=== PATIENT | male | born 1945 | race Caucasian/White ===

== ENCOUNTER → 2020-11-29 | Outpatient (CLI) | payer MEDICARE ==
[~2020-11-29] MED LIST: ALDACTONE25 MG PO; ALDACTONE50 MG PO; AMIODARONE HCL200 MG PO; ASPIRIN EC81 MG PO; CARVEDILOL3.125 MG PO; CATAPRES0.3 MG PO; COMBIVENT RESPIM4 GM INH; COREG 25MG TAB25 MG PO; CYANOCOBAL1000 MCG/1 INJ; ECOTRIN81 MG PO; ELIQUIS2.5 MG PO; ENULOSE10 GM/15 M PO; FENTANYL1 EACH TOP; FERROUS SULFAT325 M2 PO; FUROSEMIDE40 MG PO; HYDRALAZINE HC100 MG PO; HYDROCODON-ACE1 EAC4 PO; IMDUR ER TAB 3030 MG PO; IMDUR ER TAB 6060 MG PO; LASIX 40 MG TAB40 MG PO; LASIX80 MG PO; LEVOFLOXACIN250 MG PO; LIORESAL TAB 1010 MG PO; LIPITOR40 MG PO; LISINOPRIL30 MG PO; MAGNESIUM500 MG PO; METOLAZONE10 MG PO; MINIPRESS2 MG PO; MINOCIN100 MG PO; MIRALAX 119 GR119 GM PO; NEURONTIN 100100 MG PO; NITROGLYCERIN0.4 MG SL; NORVASC10 MG PO; NORVASC5 MG PO; NOVOLIN 70100 UNIT/1 SQ; NOVOLOG MI100 UNIT/1 SQ; OMEPRAZOLE40 MG PO; PANTOPRAZOLE SO40 MG PO; PERCOCET 5-3251 EACH PO; PHOSLO 667 MG667 MG PO; PLAVIX 75 MG TA75 MG PO; PREDNISOLONE OS; PREDNISONE20 MG PO; PROTONIX40 MG PO; SENNA8.6 MG PO; SODIUM BICARBO650 M1 PO; TESSALON PERLE100 MG PO; ZAROXOLYN/DIULO5 MG PO; ZOFRAN ODT 4 MG4 MG PO; ZYLOPRIM 100 M100 MG PO; ZYRTEC10 MG PO
== END ==
LOC: EXRD 13:00 → KOH-I 13:00 → EXRD 13:07
DX: I73.89 Other specified peripheral vascular diseases (principal); I70.203 Unspecified atherosclerosis of native arteries of extremities, bilateral legs
CPT/HCPCS: 93925

== ENCOUNTER → 2020-12-09 | Outpatient (CLI) | payer MEDICARE | LOC: US 12:42 → CT 14:00 | DX: I65.23 Occlusion and stenosis of bilateral carotid arteries (principal); I73.9 Peripheral vascular disease, unspecified; I77.89 Other specified disorders of arteries and arterioles; R18.8 Other ascites; J90 Pleural effusion, not elsewhere classified; K80.20 Calculus of gallbladder without cholecystitis without obstruction; Z95.828 Presence of other vascular implants and grafts | CPT/HCPCS: 75635; 93880; Q9967 ==

== ENCOUNTER 2020-12-16 11:55 | Emergency (ER) | payer MEDICARE ==
[~2020-12-16 11:55] MED LIST changes: -AMIODARONE HCL200 MG PO; -FENTANYL1 EACH TOP; -FERROUS SULFAT325 M2 PO; -HYDROCODON-ACE1 EAC4 PO; -LIORESAL TAB 1010 MG PO; -METOLAZONE10 MG PO; -MIRALAX 119 GR119 GM PO; -NEURONTIN 100100 MG PO; -NORVASC5 MG PO; -NOVOLOG MI100 UNIT/1 SQ; -PERCOCET 5-3251 EACH PO; -PHOSLO 667 MG667 MG PO; -SENNA8.6 MG PO; -ZOFRAN ODT 4 MG4 MG PO; -ZYRTEC10 MG PO
[2020-12-16 13:26] LABS: HEMOGLOBIN 8.6 gm/dl (14.0-17.5); RED BLOOD COUNT 2.71 M/UL (4.20-5.50); WHITE BLOOD COUNT 6.1 K/UL (4.5-11.0)
[2020-12-16] MEDS ORDERED: HYDROCODON-ACE1 EAC4 PO (16:42)
== END 2020-12-16 16:55 | disposition home or self-care (01) ==
LOC: ER1 11:55
PROVIDERS: Physician Assistant Medical
DX: M79.672 Pain in left foot (principal); M79.671 Pain in right foot; E87.6 Hypokalemia; E71.41 Primary carnitine deficiency; I12.9 Hypertensive chronic kidney disease with stage 1 through stage 4 chronic kidney disease, or unspecified chronic kidney disease; E11.22 Type 2 diabetes mellitus with diabetic chronic kidney disease; N18.9 Chronic kidney disease, unspecified; Z85.118 Personal history of other malignant neoplasm of bronchus and lung; Z95.1 Presence of aortocoronary bypass graft; Z79.82 Long term (current) use of aspirin
CPT/HCPCS: 80053; 85025; 85610; 94664; 96374; 96375; 99283; J2270; J2405

== ENCOUNTER 2020-12-19 08:12 | Inpatient (IN) | payer MEDICARE ==
[~2020-12-19] VITALS: Ht 175.3 cm; Wt 85.8 kg
[~2020-12-19 08:12] MED LIST changes: +HYDROCODON-ACE1 EAC4 PO
[2020-12-19 08:46] LABS: HEMOGLOBIN 9.2 gm/dl (14.0-17.5); RED BLOOD COUNT 2.9 M/UL (4.20-5.50); WHITE BLOOD COUNT 5.1 K/UL (4.5-11.0)
[2020-12-19] MEDS ORDERED: LIORESAL TAB 1010 MG PO (11:16)
[2020-12-19] MEDS ORDERED: NORVASC5 MG PO (11:16)
[2020-12-19] MEDS ORDERED: LASIX 40 MG TAB40 MG PO (11:17)
[2020-12-19] MEDS ORDERED: METOLAZONE10 MG PO (11:18)
[2020-12-19] MEDS ORDERED: ZOFRAN ODT 4 MG4 MG PO (11:18)
[2020-12-19] MEDS ORDERED: ZYRTEC10 MG PO (11:18)
[2020-12-19] MEDS ORDERED: SENNA8.6 MG PO (11:19)
[2020-12-19] MEDS ORDERED: MIRALAX 119 GR119 GM PO (11:19)
[2020-12-19] MEDS ORDERED: CYANOCOBAL1000 MCG/1 INJ (11:20)
[2020-12-19] MEDS ORDERED: PHOSLO 667 MG667 MG PO (11:20)
[2020-12-20 02:57] LABS: HEMOGLOBIN 8.7 gm/dl (14.0-17.5); RED BLOOD COUNT 2.69 M/UL (4.20-5.50); WHITE BLOOD COUNT 4.6 K/UL (4.5-11.0)
--- NOTE | 2020-12-20 18:50 | NUR ---
PT REMAINS AT DIALYSIS. WILL ASSESS WHEN HE RETURNS TO THE FLOOR.
--- NOTE | 2020-12-21 10:56 | NUR ---
PT TAKING DOWN TO DIALYSIS
--- NOTE | 2020-12-22 09:07 | NUR ---
DIALYSIS NURSE NOTIFIED PT NEEDS DIALYSIS TODAY PER DR. MA
--- NOTE | 2020-12-22 10:00 | NUR ---
PT TAKEN DOWN STAIRS TO RECIEVE DIALYSIS ORDERED
[2020-12-22 10:09] LABS: HEMOGLOBIN 8.8 gm/dl (14.0-17.5); RED BLOOD COUNT 2.77 M/UL (4.20-5.50); WHITE BLOOD COUNT 5.3 K/UL (4.5-11.0)
[2020-12-23 04:15] LABS: HEMOGLOBIN 8.7 gm/dl (14.0-17.5); RED BLOOD COUNT 2.73 M/UL (4.20-5.50); WHITE BLOOD COUNT 4.5 K/UL (4.5-11.0)
[2020-12-23] MEDS ORDERED: HYDROCODON-ACE1 EAC4 PO (11:23)
[2020-12-23] MEDS ORDERED: FENTANYL1 EACH TOP (11:23)
--- NOTE | 2020-12-23 16:16 | NUR ---
HOSPICE NOTIFIED PT HAD BEEN DISCHARGED
== END 2020-12-23 15:00 | DRG 299 ==
LOC: ER1 08:12 → CDU 10:30 → PROG CARE 10:30
PROVIDERS: Emergency Medicine; Internal Medicine; Internal Medicine Nephrology; Physician Assistant Medical; Surgery; ADMIT Internal Medicine
PROC: 5A1D70Z Performance of Urinary Filtration, Intermittent, Less than 6 Hours Per Day (ICD-10-PCS; principal; 2020-12-20)
PROC: 5A1D70Z Performance of Urinary Filtration, Intermittent, Less than 6 Hours Per Day (ICD-10-PCS; 2020-12-21)
DX: I73.9 Peripheral vascular disease, unspecified (principal); N18.6 End stage renal disease; I50.33 Acute on chronic diastolic (congestive) heart failure; D61.818 Other pancytopenia; C34.90 Malignant neoplasm of unspecified part of unspecified bronchus or lung; C78.7 Secondary malignant neoplasm of liver and intrahepatic bile duct; E87.1 Hypo-osmolality and hyponatremia; I13.2 Hypertensive heart and chronic kidney disease with heart failure and with stage 5 chronic kidney disease, or end stage renal disease; R18.8 Other ascites; E11.52 Type 2 diabetes mellitus with diabetic peripheral angiopathy with gangrene; L03.116 Cellulitis of left lower limb; Z51.5 Encounter for palliative care; J60 Coalworker's pneumoconiosis; I49.5 Sick sinus syndrome; E11.22 Type 2 diabetes mellitus with diabetic chronic kidney disease; E87.6 Hypokalemia; D63.1 Anemia in chronic kidney disease; I48.91 Unspecified atrial fibrillation; K72.90 Hepatic failure, unspecified without coma; K74.60 Unspecified cirrhosis of liver; I99.8 Other disorder of circulatory system; E11.65 Type 2 diabetes mellitus with hyperglycemia; D69.6 Thrombocytopenia, unspecified; I25.10 Atherosclerotic heart disease of native coronary artery without angina pectoris; Z99.2 Dependence on renal dialysis; Z98.61 Coronary angioplasty status; Z95.1 Presence of aortocoronary bypass graft; Z95.0 Presence of cardiac pacemaker; Z79.899 Other long term (current) drug therapy; Z79.01 Long term (current) use of anticoagulants; Z79.4 Long term (current) use of insulin
CPT/HCPCS: ECHO; 36415; 71045; 80048; 80053; 82962; 83036; 83735; 84132; 85025; 85027; 85610; 85730; 86850; 86900; 86901; 86920; 90935; 90937; 93005; 93306; 94664; 96372; 96374; 96375; 96376; 99283; 99284; J1644; J2270; J2405; J7030; U0002

== ENCOUNTER 2021-02-04 09:55 | Inpatient (IN) | payer MEDICARE ==
[~2021-02-04] VITALS: Ht 175.3 cm; Wt 79.1 kg
[~2021-02-04 09:55] MED LIST changes: -AMIODARONE HCL200 MG PO; -FERROUS SULFAT325 M2 PO; -NEURONTIN 100100 MG PO; -NOVOLOG MI100 UNIT/1 SQ; -PERCOCET 5-3251 EACH PO
[2021-02-04 11:53] LABS: HEMOGLOBIN 9.1 gm/dl (14.0-17.5); RED BLOOD COUNT 3.1 M/UL (4.20-5.50); WHITE BLOOD COUNT 4.6 K/UL (4.5-11.0)
[2021-02-04] MEDS ORDERED: NOVOLOG MI100 UNIT/1 SQ (16:37)
[2021-02-04] MEDS ORDERED: PERCOCET 5-3251 EACH PO (16:39)
[2021-02-04] MEDS ORDERED: FERROUS SULFAT325 M2 PO (16:51)
[2021-02-04] MEDS ORDERED: NEURONTIN 100100 MG PO (18:02)
[2021-02-05 06:49] LABS: HEMOGLOBIN 8.7 gm/dl (14.0-17.5); RED BLOOD COUNT 2.98 M/UL (4.20-5.50); WHITE BLOOD COUNT 3.6 K/UL (4.5-11.0)
[2021-02-06 05:56] LABS: HEMOGLOBIN 9.4 gm/dl (14.0-17.5); RED BLOOD COUNT 3.19 M/UL (4.20-5.50); WHITE BLOOD COUNT 4.4 K/UL (4.5-11.0)
--- NOTE | 2021-02-07 04:09 | NUR ---
0325- TELE NOTIFIED THAT WE NEEDED TO GO CHECK ON PATIENT. NAYA RN TOLD THEM SHE JUST LEFT THE ROOM AND HAD PLACED HIS O2 BACK ON HIM. THEN THEY TOLD HER HE HAD BEEN IN [place] FOR A LITTLE WHILE THEN SAID FOR 12 SECONDS. WE IMMEDIATELY WENT AND ASSESSED THE PATIENT WHO WAS TALKING TO US AND ASKED WHAT WAS GOING ON. I ASKED PATIENT IF HE WAS OKAY AND HE STATED YES HE WAS FINE. DURING ASSESSMENT PATIENT WENT NONRESPONSIVE AND WENT BACK INTO [place]. TORRI VEE CALLED, BEFORE COMPRESSIONS COULD BE STARTED PATIENT STARTED RESPONDING AND HAD A PULSE. HE WAS TELLING US HE WAS OKAY AND AGAIN WANTED TO KNOW WHAT WAS GOING ON. CODE CANCELLED AT 0328. DRILLING RIG OPERATOR AND RESOURCE ARRIVED INTO ROOM PATIENT IN [place] AT 0329. PATIENT RECEIVED AMIO BOLUS AT 0337. B/P 115/90, O2 89%, PT STILL IN [place] PTS OWN DEFIBRILATOR DELIVERED SHOCK, RT BEGAN MANUALLY BAGGING. 0341 PULSE LOST COMPRESSIONS STARTED. 0344 PULSE 128, [place] PULSE 230, B/P 102/74. 0345 22G PLACED TO LEFT HAND BY RESOURCE NURSE. 0347 300MG AMIO IVP GIVEN. 0348 INTUBATED 23 AT THE LIP BY ED PHYSICIAN, B/P 79/61. 0349 B\P 96/71 AMIO DRIP STARTED PER PROTOCOL. 0355 500ML NORMAL SALINE BOLUS INITIATED. B\P 117/82, HR 96. 0357 VERSED INITIATED AT 2 PER PROTOCOL. 0358 B\P 121/79, HR 88. 0400 B\P 124/73, HR 91, O2 95%. SEE PROVIDER NOTES FOR PHYSICIAN NOTIFICATIONS.
[2021-02-07 04:25] LABS: HEMOGLOBIN 9.8 gm/dl (14.0-17.5); RED BLOOD COUNT 3.38 M/UL (4.20-5.50)
[2021-02-07 04:26] LABS: WHITE BLOOD COUNT 12.3 K/UL (4.5-11.0)
[2021-02-07 12:14] LABS: HBSAG SCREEN Negative (Negative); HEP A AB, IGM Negative (Negative); HEP B CORE AB, IGM Negative (Negative); HEP C VIRUS AB <0.1 (0.0-0.9)
[2021-02-08 05:03] LABS: HEMOGLOBIN 8.5 gm/dl (14.0-17.5); RED BLOOD COUNT 2.88 M/UL (4.20-5.50); WHITE BLOOD COUNT 4.8 K/UL (4.5-11.0)
[2021-02-09 05:08] LABS: HEMOGLOBIN 8.5 gm/dl (14.0-17.5); RED BLOOD COUNT 2.85 M/UL (4.20-5.50); WHITE BLOOD COUNT 5.5 K/UL (4.5-11.0)
[2021-02-10 03:17] LABS: HEMOGLOBIN 8.5 gm/dl (14.0-17.5); RED BLOOD COUNT 2.88 M/UL (4.20-5.50); WHITE BLOOD COUNT 5.4 K/UL (4.5-11.0)
--- NOTE | 2021-02-10 18:12 | NUR ---
DRESSING CHANGED ON HAND. PT TOLERATED IT WELL.
--- NOTE | 2021-02-11 10:56 | NUR ---
CHANGED DRESSING ON R-HAND. DOCTOR HAD REMOVED THE ONE THAT WAS PUT ON YESTERDAY. SO REAPPLIED DRESSING WITH NON-ADHERENT PAD, KURLEX, AND A ANAMIKA BANDAGE. PT TOLERATED IT WELL AND HAD MOVEMENT IN HIS RING FINGER.
[2021-02-12 02:44] LABS: HEMOGLOBIN 8.3 gm/dl (14.0-17.5); RED BLOOD COUNT 2.83 M/UL (4.20-5.50); WHITE BLOOD COUNT 5.7 K/UL (4.5-11.0)
[2021-02-13] MEDS ORDERED: AMIODARONE HCL200 MG PO (14:26)
--- NOTE | 2021-02-13 15:01 | NUR ---
16:40 CASE MANAGEMENT HERE AND RELAYED THE MESSAGE THAT THERE HAD BEEN A PHONE CALL FROM ARELY ANGELA, THE PATIENT'S [id number], THAT WAS CALLING ON BEHALF OF THE PT'S STATING THAT THEY DID NOT WANT THE PT TO COME HOME WITH THE LIFEVEST. DR BOND WAS NOTIDIED AND WAS STATTING THAT THE SON HIMSELF AGREED TO THE PT HAVING IT AND EVERYBODY NEEDED TO BE ON BOARD WITH IT BEFORE BEING DISCHARGED. THE SON AND PT'S MADE THE DECISION THAT THE PT WOULD BE GOING HOME WITH THE LIFEVEST AT THIS TIME.
== END 2021-02-13 16:09 | disposition home or self-care (01) | DRG 513 ==
LOC: ER1 09:55 → PROG CARE 15:33 → CDU 15:33 → MED SURG 4 15:33 → CCU 02-07 04:31 → PROG CARE 02-09 01:08
PROVIDERS: Emergency Medicine; Internal Medicine; Internal Medicine Nephrology; Orthopaedic Surgery; Physician Assistant; ADMIT Internal Medicine
PROC: 5A12012 Performance of Cardiac Output, Single, Manual (ICD-10-PCS; 2021-02-04)
PROC: 0BH17EZ Insertion of Endotracheal Airway into Trachea, Via Natural or Artificial Opening (ICD-10-PCS; 2021-02-04)
PROC: 5A1D70Z Performance of Urinary Filtration, Intermittent, Less than 6 Hours Per Day (ICD-10-PCS; 2021-02-05)
PROC: 0LN70ZZ Release Right Hand Tendon, Open Approach (ICD-10-PCS; principal; 2021-02-06 17:30)
PROC: 0JDJ0ZZ Extraction of Right Hand Subcutaneous Tissue and Fascia, Open Approach (ICD-10-PCS; 2021-02-06 17:30)
PROC: 5A1935Z Respiratory Ventilation, Less than 24 Consecutive Hours (ICD-10-PCS; 2021-02-07)
DX: M65.141 Other infective (teno)synovitis, right hand (principal); A41.9 Sepsis, unspecified organism; I49.01 Ventricular fibrillation; Z20.822 Contact with and (suspected) exposure to COVID-19; I46.2 Cardiac arrest due to underlying cardiac condition; N18.6 End stage renal disease; I50.23 Acute on chronic systolic (congestive) heart failure; R65.21 Severe sepsis with septic shock; J96.01 Acute respiratory failure with hypoxia; J18.9 Pneumonia, unspecified organism; I13.2 Hypertensive heart and chronic kidney disease with heart failure and with stage 5 chronic kidney disease, or end stage renal disease; I25.810 Atherosclerosis of coronary artery bypass graft(s) without angina pectoris; D61.818 Other pancytopenia; I47.2 Ventricular tachycardia; C78.7 Secondary malignant neoplasm of liver and intrahepatic bile duct; L03.113 Cellulitis of right upper limb; L02.511 Cutaneous abscess of right hand; E87.2 Acidosis; E87.1 Hypo-osmolality and hyponatremia; R18.8 Other ascites; E11.65 Type 2 diabetes mellitus with hyperglycemia; J60 Coalworker's pneumoconiosis; E11.51 Type 2 diabetes mellitus with diabetic peripheral angiopathy without gangrene; I25.5 Ischemic cardiomyopathy; L89.151 Pressure ulcer of sacral region, stage 1; I48.0 Paroxysmal atrial fibrillation; K74.60 Unspecified cirrhosis of liver; E87.5 Hyperkalemia; E87.8 Other disorders of electrolyte and fluid balance, not elsewhere classified; I07.1 Rheumatic tricuspid insufficiency; J44.9 Chronic obstructive pulmonary disease, unspecified; I45.10 Unspecified right bundle-branch block; D63.1 Anemia in chronic kidney disease; E03.9 Hypothyroidism, unspecified; K21.9 Gastro-esophageal reflux disease without esophagitis; E78.5 Hyperlipidemia, unspecified; I49.5 Sick sinus syndrome; E11.22 Type 2 diabetes mellitus with diabetic chronic kidney disease; F03.90 Unspecified dementia, unspecified severity, without behavioral disturbance, psychotic disturbance, mood disturbance, and anxiety; Z99.2 Dependence on renal dialysis; Z79.4 Long term (current) use of insulin; Z95.1 Presence of aortocoronary bypass graft; Z85.118 Personal history of other malignant neoplasm of bronchus and lung; Z95.810 Presence of automatic (implantable) cardiac defibrillator; Z89.432 Acquired absence of left foot; Z80.3 Family history of malignant neoplasm of breast; Z82.49 Family history of ischemic heart disease and other diseases of the circulatory system; Z82.69 Family history of other diseases of the musculoskeletal system and connective tissue; Z79.01 Long term (current) use of anticoagulants; Z87.891 Personal history of nicotine dependence; I25.2 Old myocardial infarction
CPT/HCPCS: 31500; 36415; 36600; 71045; 73140; 73200; 80048; 80053; 80074; 80202; 82550; 82553; 82803; 82962; 83605; 83735; 84484; 85025; 85027; 85610; 85652; 85730; 86140; 87070; 87205; 89051; 90935; 90937; 92950; 93005; 94002; 94640; 94664; 94760; 96365; 96366; 96368; 96372; 96375; 96376; 99285; A6212; J0171; J0282; J0690; J0692; J0696; J1100; J2001; J2405; J2704; J3010; J3370; J7030; J7050; J7070; J7120; P9047; U0002

== ENCOUNTER → 2021-02-04 | Outpatient (CLI) | payer MEDICARE ==
[~2021-02-04] MED LIST changes: +AMIODARONE HCL200 MG PO; +FENTANYL1 EACH TOP; +FERROUS SULFAT325 M2 PO; +LIORESAL TAB 1010 MG PO; +METOLAZONE10 MG PO; +MIRALAX 119 GR119 GM PO; +NEURONTIN 100100 MG PO; +NORVASC5 MG PO; +NOVOLOG MI100 UNIT/1 SQ; +PERCOCET 5-3251 EACH PO; +PHOSLO 667 MG667 MG PO; +SENNA8.6 MG PO; +ZOFRAN ODT 4 MG4 MG PO; +ZYRTEC10 MG PO
[2021-02-04 08:17] LABS: HEMOGLOBIN 9.7 gm/dl (14.0-17.5); RED BLOOD COUNT 3.33 M/UL (4.20-5.50); WHITE BLOOD COUNT 4.2 K/UL (4.5-11.0)
[2021-02-04 10:15] LABS: BODY FLUID SOURCE PERITONEAL; MONONUCLEAR CELLS 90 %; POLYMORPHONUCLEAR 10 %; RBC (AUTOMATED) 39000 10^6; WBC (AUTOMATED) 237 10^3
== END ==
LOC: OPSV 07:14 → US 08:00
PROVIDERS: Internal Medicine Nephrology
DX: E11.22 Type 2 diabetes mellitus with diabetic chronic kidney disease (principal); N18.6 End stage renal disease; K74.60 Unspecified cirrhosis of liver; Z99.2 Dependence on renal dialysis; M19.041 Primary osteoarthritis, right hand
CPT/HCPCS: 36415; 73140; 85027; 85610; 85730; 89051; 96365; P9047

== ENCOUNTER 2021-06-13 10:57 | Emergency (ER) | payer MEDICARE ==
[~2021-06-13 10:57] MED LIST changes: +AMIODARONE HCL200 MG PO; +FERROUS SULFAT325 M2 PO; +NEURONTIN 100100 MG PO
[2021-06-13 12:41] LABS: HEMOGLOBIN 10.2 gm/dl (14.0-17.5); RED BLOOD COUNT 3.17 M/UL (4.20-5.50); WHITE BLOOD COUNT 4.9 K/UL (4.5-11.0)
== END 2021-06-13 19:18 | disposition home or self-care (01) ==
LOC: ER1 10:57
PROVIDERS: Physician Assistant Medical
DX: E11.22 Type 2 diabetes mellitus with diabetic chronic kidney disease (principal); N18.6 End stage renal disease; Z99.2 Dependence on renal dialysis; Z79.4 Long term (current) use of insulin; Z95.1 Presence of aortocoronary bypass graft
CPT/HCPCS: 74018; 80053; 82272; 83605; 83690; 85025; 99284

== ENCOUNTER 2021-08-13 05:35 | Observation (INO) | payer MEDICARE ==
[~2021-08-13] VITALS: Ht 175.3 cm; Wt 84.8 kg
[2021-08-13 06:44] LABS: HEMOGLOBIN 9.3 gm/dl (14.0-17.5); WHITE BLOOD COUNT 5.5 K/UL (4.5-11.0)
[2021-08-13] MEDS ORDERED: LACTULOSE10 GM/151 PO (12:18)
[2021-08-13] MEDS ORDERED: NITROGLYCERIN0.4 MG SL (12:19)
[2021-08-13] MEDS ORDERED: NARCAN4 MG (12:21)
[2021-08-13] MEDS ORDERED: COMBIVENT RESPIM4 GM PO ×2 (12:23→12:24)
[2021-08-13] MEDS ORDERED: FENTANYL1 EACH TD (12:28)
[2021-08-13] MEDS ORDERED: PERCOCET 10-321 EACH PO (16:39)
[2021-08-14 02:20] LABS: HEMOGLOBIN 9.1 gm/dl (14.0-17.5); RED BLOOD COUNT 2.9 M/UL (4.20-5.50); WHITE BLOOD COUNT 5.4 K/UL (4.5-11.0)
--- NOTE | 2021-08-14 12:47 | NUR ---
MD AND NURSE EXPLAINED THE RISK OF LEAVING THE HOSPITAL WITHOUT RECEIVING MD ORDERED TREATMENT. PT INSISTED THAT HE WANTED TO GO WITHOUT TREATMENT. MD NOTIFIED PT OF THE DANGERS AND POSSIBLE IF HE WENT HOME. PT SIGNED AMA PAPERS.
== END 2021-08-14 12:44 | disposition left against medical advice (07) ==
LOC: ER1 05:35 → CDU 08:27 → MED SURG 4 08:27
PROVIDERS: Physician Assistant Medical; ADMIT Internal Medicine
DX: R07.89 Other chest pain (principal); I13.2 Hypertensive heart and chronic kidney disease with heart failure and with stage 5 chronic kidney disease, or end stage renal disease; E11.22 Type 2 diabetes mellitus with diabetic chronic kidney disease; N18.6 End stage renal disease; I50.22 Chronic systolic (congestive) heart failure; I25.10 Atherosclerotic heart disease of native coronary artery without angina pectoris; I25.5 Ischemic cardiomyopathy; I49.5 Sick sinus syndrome; I48.0 Paroxysmal atrial fibrillation; I25.2 Old myocardial infarction; J91.8 Pleural effusion in other conditions classified elsewhere; E78.5 Hyperlipidemia, unspecified; K74.60 Unspecified cirrhosis of liver; J60 Coalworker's pneumoconiosis; D61.818 Other pancytopenia; E11.51 Type 2 diabetes mellitus with diabetic peripheral angiopathy without gangrene; I65.21 Occlusion and stenosis of right carotid artery; Z95.1 Presence of aortocoronary bypass graft; Z95.0 Presence of cardiac pacemaker; Z99.2 Dependence on renal dialysis; Z53.29 Procedure and treatment not carried out because of patient's decision for other reasons; Z89.512 Acquired absence of left leg below knee; Z95.5 Presence of coronary angioplasty implant and graft; Z20.822 Contact with and (suspected) exposure to COVID-19
CPT/HCPCS: 36415; 71045; 80048; 80053; 82550; 82553; 82962; 83690; 83735; 83874; 84484; 85025; 85027; 90935; 93005; 94640; 94760; 99285; A6212; G0378; U0002

== ENCOUNTER 2021-11-23 13:02 | Inpatient (IN) | payer MEDICARE ==
[~2021-11-23] VITALS: Ht 175.3 cm; Wt 72.6 kg
[~2021-11-23 13:02] MED LIST changes: +COMBIVENT RESPIM4 GM PO; +FENTANYL1 EACH TD; +LACTULOSE10 GM/151 PO; +NARCAN4 MG; +OXYCODONE HCL15 MG PO
[2021-11-23 13:50] LABS: HEMOGLOBIN 7.5 gm/dl (14.0-17.5); RED BLOOD COUNT 2.56 M/UL (4.20-5.50); WHITE BLOOD COUNT 8.8 K/UL (4.5-11.0)
[2021-11-23] MEDS ORDERED: DRONABINOL2.5 MG PO (15:28)
[2021-11-23] MEDS ORDERED: CETIRIZINE HCL10 MG PO (15:29)
[2021-11-24 04:41] LABS: HEMOGLOBIN 8.6 gm/dl (14.0-17.5); RED BLOOD COUNT 2.88 M/UL (4.20-5.50); WHITE BLOOD COUNT 9.4 K/UL (4.5-11.0)
[2021-11-25 04:44] LABS: HEMOGLOBIN 8.4 gm/dl (14.0-17.5); RED BLOOD COUNT 2.84 M/UL (4.20-5.50); WHITE BLOOD COUNT 8.5 K/UL (4.5-11.0)
[2021-11-26 04:00] LABS: HEMOGLOBIN 8.8 gm/dl (14.0-17.5); RED BLOOD COUNT 2.92 M/UL (4.20-5.50)
[2021-11-26 04:04] LABS: WHITE BLOOD COUNT 10.9 K/UL (4.5-11.0)
--- NOTE | 2021-11-26 11:26 | NUR ---
11/26/21 1120 SON HERE, EXPLAINED SPEAKING TO PT REGARDING HOSPICE CONSULT. PT AND SON BOTH DECLINED HOSPICE CARE AT THIS TIME. EXPLAINED PT STATUS, ILLNESS, DISEASE PROCESS WITH (EDUARDA, CASE MANAGEMENT) PT HAS LIFELINE WITH PALLIATIVE CARE AT HOME. STATES THEY WILL CONTINUE WITH THAT AFTER DISCHARGE. EXPLAINED TO [facility] THAT PT WAS NOT ALLOWED VISITORS DUE TO COVID.
[2021-11-27 04:29] LABS: HEMOGLOBIN 9.5 gm/dl (14.0-17.5); RED BLOOD COUNT 3.15 M/UL (4.20-5.50)
[2021-11-28 03:26] LABS: RED BLOOD COUNT 3.03 M/UL (4.20-5.50); WHITE BLOOD COUNT 11.8 K/UL (4.5-11.0)
[2021-11-28 12:15] LABS: HBSAG SCREEN Negative (Negative); HEP A AB, IGM Negative (Negative); HEP B CORE AB, IGM Negative (Negative); HEP C VIRUS AB 0.1 (0.0-0.9)
--- NOTE | 2021-11-28 13:45 | NUR ---
11/28/20 1330 PT CALLED TO CHECK ON PT STATUS. EXPLAINED PT STATUS, NO IMPROVEMENT, EXPLAINED LEVOPHED FOR BP, DIALYSIS TO BE DONE THIS DATE. ALSO INQUIRED WITH ABOUT SACRAL, HIP, ISCHIAL WOUNDS AND RIGHT LOWER EXTREM COOL WITH THREADY PULSE. STATED THAT HE HAD "ALL THOSE SORES BEFORE HE CAME TO THE HOSPITAL" STATED THAT HE HAD "[facility] BUT [facility]'T GET TO GO" EXPLAINED PT HEALTH AND WOUNDS ALONG WITH CAUSES, VOICES UNDERSTANDING. STATED THAT SHE WOULD TALK WITH HER CHILDREN REGARDING COMFORT MEASURES.
--- NOTE | 2021-11-28 15:05 | NUR ---
11/28/20 1500 SON HERE TO SEE PT, EXPLAINED THAT PT WAS COVID POSITIVE, FAMILY IS MAKING COMFORT CARE DECISIONS. PATIENT IS CONFUSED, DIDN'T RECOGNIZE SON, IS DISORIENTED TO PLACE AND TIME. DR CRANE NOTIFIED OF FAMILY WISHES TO DO DIALYSIS TODAY AND REQUEST TO HAVE PT HOME TMRW WITH HOSPICE.
--- NOTE | 2021-11-28 15:19 | NUR ---
11/28/20 1515 RECEIVED PHONE CALL FROM FELICIA AT [facility]. STATED THAT AND SON HAD CONTACTED THEM REGARDING PT COMING HOME COMFORT CARE IN THE AM. STATED THAT HE HAD ALL EQUIPMENT NEEDED AT HOME AND THAT THE PRACTITIONER WOULD SEND ESCRIPTS TO PHARMACY FOR HOSPICE MEDS. DR CRANE NOTIFIED.
[2021-11-29 08:18] LABS: RED BLOOD COUNT 3.39 M/UL (4.20-5.50)
[2021-11-29] MEDS ORDERED: MIDODRINE HCL2.5 MG PO (09:29)
== END 2021-11-29 17:20 | DRG 871 ==
LOC: ER1 13:02 → PROG CARE 15:23 → CDU 15:23 → PROG CARE 21:30
PROVIDERS: Emergency Medicine; Internal Medicine; Internal Medicine Nephrology; Physician Assistant Medical; ADMIT Internal Medicine
PROC: 8E0ZXY6 Isolation (ICD-10-PCS; principal; 2021-11-23)
PROC: 3E0333Z Introduction of Anti-inflammatory into Peripheral Vein, Percutaneous Approach (ICD-10-PCS; 2021-11-23)
PROC: 3E033XZ Introduction of Vasopressor into Peripheral Vein, Percutaneous Approach (ICD-10-PCS; 2021-11-23)
PROC: XW033E5 Introduction of Remdesivir Anti-infective into Peripheral Vein, Percutaneous Approach, New Technology Group 5 (ICD-10-PCS; 2021-11-23)
PROC: 5A1D70Z Performance of Urinary Filtration, Intermittent, Less than 6 Hours Per Day (ICD-10-PCS; 2021-11-23)
PROC: 5A1D70Z Performance of Urinary Filtration, Intermittent, Less than 6 Hours Per Day (ICD-10-PCS; 2021-11-26)
PROC: 5A1D70Z Performance of Urinary Filtration, Intermittent, Less than 6 Hours Per Day (ICD-10-PCS; 2021-11-28)
DX: A41.9 Sepsis, unspecified organism (principal); U07.1 COVID-19; J96.21 Acute and chronic respiratory failure with hypoxia; J12.82 Pneumonia due to coronavirus disease 2019; N18.6 End stage renal disease; I50.23 Acute on chronic systolic (congestive) heart failure; R65.21 Severe sepsis with septic shock; G93.41 Metabolic encephalopathy; C78.7 Secondary malignant neoplasm of liver and intrahepatic bile duct; C34.90 Malignant neoplasm of unspecified part of unspecified bronchus or lung; D61.818 Other pancytopenia; I13.2 Hypertensive heart and chronic kidney disease with heart failure and with stage 5 chronic kidney disease, or end stage renal disease; J44.0 Chronic obstructive pulmonary disease with (acute) lower respiratory infection; N25.81 Secondary hyperparathyroidism of renal origin; N17.9 Acute kidney failure, unspecified; Z66 Do not resuscitate; Z51.5 Encounter for palliative care; E78.5 Hyperlipidemia, unspecified; E87.5 Hyperkalemia; K74.60 Unspecified cirrhosis of liver; I25.5 Ischemic cardiomyopathy; L89.312 Pressure ulcer of right buttock, stage 2; J60 Coalworker's pneumoconiosis; E11.51 Type 2 diabetes mellitus with diabetic peripheral angiopathy without gangrene; I73.9 Peripheral vascular disease, unspecified; E21.1 Secondary hyperparathyroidism, not elsewhere classified; D63.1 Anemia in chronic kidney disease; I71.4 Abdominal aortic aneurysm, without rupture; I25.10 Atherosclerotic heart disease of native coronary artery without angina pectoris; I48.0 Paroxysmal atrial fibrillation; Z95.0 Presence of cardiac pacemaker; Z99.2 Dependence on renal dialysis; Z89.512 Acquired absence of left leg below knee; Z98.890 Other specified postprocedural states; Z95.5 Presence of coronary angioplasty implant and graft; Z79.82 Long term (current) use of aspirin; Z79.899 Other long term (current) drug therapy; Z79.4 Long term (current) use of insulin
CPT/HCPCS: 0240U; 36415; 36600; 71045; 80048; 80053; 80074; 80202; 80307; 82140; 82550; 82553; 82803; 82962; 83036; 83605; 83690; 83735; 83874; 83880; 84100; 84439; 84443; 84484; 85025; 85027; 85610; 85730; 87040; 90935; 90937; 93005; 94640; 94760; 96374; 96375; 99285; A6212; G0480; J0248; J0610; J0696; J1100; J1335; J3370; J7030; J7070